=== PATIENT | female | born 1995 | race Two or more races ===

== ENCOUNTER 2020-10-26 19:43 | Emergency (ER) | payer SELFPAY ==
[~2020-10-26] VITALS: Ht 167.6 cm; Wt 52.9 kg
[2020-10-26 20:56] VITALS: BP 112/72
[2020-10-26] MEDS ORDERED: NEOSPORIN OINT. PKT 1 PACKET ONE (21:15)
== END 2020-10-26 21:49 | disposition home or self-care (01) ==
LOC: ED 20:30
DX: S80.812A Abrasion, left lower leg, initial encounter (principal); X58.XXXA Exposure to other specified factors, initial encounter; Y93.89 Activity, other specified; Y92.89 Other specified places as the place of occurrence of the external cause; Y99.8 Other external cause status
CPT/HCPCS: 99283